=== PATIENT | male | born 1950 | race Caucasian/White ===

== ENCOUNTER → 2017-01-06 | Outpatient (CLI) | payer OTHER | LOC: CIMAGING 10:11 | PROVIDERS: ATTEND Psychiatry & Neurology Neurology | DX: R42 Dizziness and giddiness (principal); S06.9X9A Unspecified intracranial injury with loss of consciousness of unspecified duration, initial encounter; R93.0 Abnormal findings on diagnostic imaging of skull and head, not elsewhere classified; Z85.46 Personal history of malignant neoplasm of prostate | CPT/HCPCS: 70450-PO ==